=== PATIENT | male | born 1990 | race Caucasian/White ===

== ENCOUNTER 2018-07-31 13:59 | Emergency (ER) | payer MEDICAID ==
[~2018-07-31] VITALS: Ht 167.6 cm; Wt 65.9 kg
[2018-07-31 14:57] VITALS: BP 131/76; Ht 167.6 cm; Wt 65.9 kg
[2018-07-31] MEDS ORDERED: BASAGLAR K100 UNIT/1 SC (15:06)
[2018-07-31] MEDS ORDERED: BUPRENORPHINE HC8 MG SL (15:07)
[2018-07-31] MEDS ORDERED: CLEOCIN HCL300 MG PO (16:55)
[2018-07-31] MEDS ORDERED: EC-NAPROSYN500 MG PO (16:55)
== END 2018-07-31 17:04 | disposition home or self-care (01) ==
LOC: D.ER 13:59
DX: L03.211 Cellulitis of face (principal); S02.2XXA Fracture of nasal bones, initial encounter for closed fracture; X58.XXXA Exposure to other specified factors, initial encounter; Y93.89 Activity, other specified; Y92.019 Unspecified place in single-family (private) house as the place of occurrence of the external cause; F17.200 Nicotine dependence, unspecified, uncomplicated